=== PATIENT | female | born 1995 | race Caucasian/White ===

== ENCOUNTER → 2020-05-24 | Outpatient (REF) | payer OTHER ==
[2020-05-24 14:00] LABS: HEMATOCRIT 36.1 % (36.0-47.0); MEAN CORPUSCULAR HEMOGLOBIN 28.2 pg (27.0-33.0); MEAN CORPUSCULAR HGB CONC 33.2 g/dl (32.0-36.5); MEAN CORPUSCULAR VOLUME 84.9 fl (80.0-96.0); PLATELET COUNT, AUTOMATED 314 10^3/uL (150-450); RED BLOOD COUNT 4.25 10^6/uL (4.00-5.40); WHITE BLOOD COUNT 10.3 10^3/uL (4.0-10.0)
[2020-05-24 15:20] LABS: HEPATITIS C VIRUS ABY INDEX 0.1 INDEX (<0.8); HIV 1&2 SCREEN CENTAUR NEGATIVE (NEGATIVE)
[2020-05-24 15:32] LABS: CHLAMYDIA DNA AMPLIFICATION NEGATIVE (NEGATIVE); GC DNA AMPLIFICATION NEGATIVE (NEGATIVE)
== END ==
LOC: M PLALAB 11:08
PROVIDERS: ATTEND Obstetrics & Gynecology
DX: Z3A.11 11 weeks gestation of pregnancy (principal)

== ENCOUNTER → 2020-06-20 | Outpatient (REF) | payer OTHER | LOC: M PLALAB 17:31 | PROVIDERS: ATTEND Obstetrics & Gynecology | DX: Z3A.15 15 weeks gestation of pregnancy (principal); Z53.9 Procedure and treatment not carried out, unspecified reason ==

== ENCOUNTER → 2020-06-21 | Outpatient (CLI) | payer OTHER | LOC: M WHC 10:27 | PROVIDERS: ATTEND Obstetrics & Gynecology | DX: Z36.89 Encounter for other specified antenatal screening (principal); Z3A.15 15 weeks gestation of pregnancy; Z53.8 Procedure and treatment not carried out for other reasons ==

== ENCOUNTER → 2020-06-21 | Outpatient (REF) | payer OTHER | LOC: M SFHCWAGY 16:44 | PROVIDERS: ATTEND Obstetrics & Gynecology | DX: Z36.89 Encounter for other specified antenatal screening (principal); Z3A.35 35 weeks gestation of pregnancy ==

== ENCOUNTER → 2020-07-12 | Outpatient (CLI) | payer OTHER ==
--- NOTE | 2020-07-12 12:05 | REP ---
INDICATION: ANATOMY. COMPARISON: None. TECHNIQUE: Multiple sonographic images of the gravid uterus. FINDINGS: There is a single intrauterine gestation in a breech presentation. The placenta is anterior with grade 0 maturity. There is no previa. There is a three-vessel cord that inserts centrally onto the placenta. The cord insertion is unremarkable. The cervix measures 3.2 cm. heart rate is 128 beats per minute. Amniotic fluid volume subjectively is normal. The composite ultrasound gestational age by the ultrasound today is 17 weeks 0 days with an LISA of 12/20/2020. The LMP is unknown. weight is 182 g. This corresponds to 0 lb 6 oz. Next this is less than the 1st percentile for 18 weeks 1 day. The following anatomic structures are identified and are unremarkable: Cranium, cavum septum pellucidum, falx, intracranial ventricles, choroid plexus, cerebellum, cisterna magna, nuchal fold, facial profile, cardiac rhythm, four-chamber heart, cardiac right and left ventricular outflow tracts, stomach, abdominal wall, bladder, right and left upper extremities, right left lower extremities and 3 vessel cord. The following structures are suboptimally demonstrated today because of position: upper lip, diaphragm, right and left kidneys and spine. A follow-up study dedicated to these structures might be considered. IMPRESSION: dating and anatomy as described above. <Electronically signed by Alessio Chawla > 07/12/20 1207
== END ==
LOC: M WHC 10:02
PROVIDERS: ATTEND Obstetrics & Gynecology
DX: Z36.89 Encounter for other specified antenatal screening (principal); O32.1XX0 Maternal care for breech presentation, not applicable or unspecified; Z3A.17 17 weeks gestation of pregnancy

== ENCOUNTER → 2020-07-18 | Outpatient (CLI) | payer OTHER | LOC: M WHC 12:47 | PROVIDERS: ATTEND Obstetrics & Gynecology | DX: Z3A.19 19 weeks gestation of pregnancy (principal); Z53.9 Procedure and treatment not carried out, unspecified reason ==

== ENCOUNTER → 2020-07-22 | Outpatient (REF) | payer OTHER | LOC: M SFHCWAGY 13:20 | PROVIDERS: ATTEND Obstetrics & Gynecology | DX: Z36.89 Encounter for other specified antenatal screening (principal); Z3A.19 19 weeks gestation of pregnancy ==

== ENCOUNTER → 2020-08-08 | Outpatient (CLI) | payer OTHER ==
--- NOTE | 2020-08-08 18:16 | REP ---
INDICATION: F/U ANATOMY. COMPARISON: Comparison study July 12, 2020.. TECHNIQUE: Transabdominal obstetric sonography. FINDINGS: Scanning through the gravid uterus demonstrates a viable single intrauterine gestation in cephalic lie. motion is observed and heart rate is recorded at 136 beats per minute. A anterior placenta is seen, grade 1, without evidence of placenta previa. Closed cervical length is measured at 3.0 cm transabdominally. No extrauterine abnormality is observed. Amniotic fluid is subjectively normal. On today's exam, nose and lips, diaphragm, kidneys, and spine are visualized and felt to be unremarkable. In conjunction with the prior study, anatomic survey is felt to be complete.. Biometry chart: BPD 4.7 cm, 20 weeks 2 days Head circumference 18.3 cm, 20 weeks 5 days Abdominal circumference 15.7 cm, 20 weeks 6 days Femur length 3.6 cm, 21 weeks 3 days Humeral length 3.4 cm, 21 weeks 5 days HC AC ratio normal 1.17 Cephalic index normal 0.70 Estimated weight 395 g, 0 lb 13 oz, less than 3rd percentile for 22 weeks 0 days IMPRESSION: Viable single intrauterine gestation at 21 weeks 0 days by today's composite sonographic criteria. LISA by today's sonography 12/19/2020. No complication identified. Expected gestational age estimate from known LISA provided is 22 weeks 0 days LISA by prior sonography December 12, 2020. EFW less than 3rd percentile. <Electronically signed by Wesly Griffith > 08/08/20 [id number]
== END ==
LOC: M WHC 09:47
PROVIDERS: ATTEND Obstetrics & Gynecology
DX: Z36.2 Encounter for other antenatal screening follow-up (principal); Z3A.21 21 weeks gestation of pregnancy

== ENCOUNTER → 2020-08-12 | Outpatient (CLI) | payer OTHER | LOC: M WHC 16:07 | PROVIDERS: ATTEND Obstetrics & Gynecology | DX: Z36.89 Encounter for other specified antenatal screening (principal); Z3A.22 22 weeks gestation of pregnancy; Z53.9 Procedure and treatment not carried out, unspecified reason ==

== ENCOUNTER → 2020-08-27 | Outpatient (CLI) | payer OTHER ==
--- NOTE | 2020-08-27 09:31 | REP ---
INDICATION: F/U ANATOMY,GROWTH,BPP COMPARISON: 08/08/2020 TECHNIQUE: Transabdominal obstetrical ultrasound with color Doppler evaluation. FINDINGS: Examination demonstrates a single live intrauterine in cephalic presentation. motion is identified by technologist. Placenta is noted anterior and grade 1 without evidence for placenta previa or abruption. Amniotic fluid volume is low normal. Cervix measures 3.6 cm in length and appears closed.. Gestational age by LMP 24 weeks 5 days with LISA 12/12/2020. Gestational age by current measurements 24 weeks 1 day with LISA 12/16/2020. FHR equals 152 beats per minute. Estimated weight 666 grams (19thpercentile). SUZANNE: 9.5 cm (9.7-22.0) Biophysical profile score: 8/8 Umbilical artery SD ratio: 2.59-2.80 (2.35-4.88) IMPRESSION: 1. Single live intrauterine in cephalic presentation demonstrating appropriate estimated weight/growth. Biophysical profile score normal. 2. Amniotic fluid index is low normal. <Electronically signed by Eros Khan > 08/27/20 0832
== END ==
LOC: M WHC 07:55
PROVIDERS: ATTEND Obstetrics & Gynecology
DX: Z36.2 Encounter for other antenatal screening follow-up (principal); Z3A.24 24 weeks gestation of pregnancy

== ENCOUNTER → 2020-11-08 | Outpatient (CLI) | payer OTHER ==
--- NOTE | 2020-11-08 12:37 | REP ---
INDICATION: IUGR, BPP. COMPARISON: 08/27/2020. TECHNIQUE: Real-time sonographic evaluation of the gravid uterus performed. FINDINGS: Estimated gestational age is35 weeks 1 day, EDC 12/12/2020. Today's measurements indicate appropriate growth. Presentation: Cephalic Placenta anterior, grade 1, without evidence of placenta previa. heart rate is recorded at 124 beats per minute. Amniotic fluid is subjectively normal. SUZANNE 18.1, normal range 7.9-24.9. Biophysical profile score 8/8. Closed cervical length is measured at 3.3 cm. Biometry chart: BPD: 88 mm, 35 weeks 3 days, 53rd percentile. HC: 319 mm, 35 weeks 6 days, 62nd percentile AC: 307 mm, 34 weeks 5 days, 43rd percentile Femur length: 69 mm, 35 weeks 3 days, 54th percentile HC to AC ratio: 1.04, normal range 0.93-1.12. Estimated weight: 2588g, 46th percentile. SD ratio umbilical artery 2.04, normal 1.67-3.58. RI 0.51, normal 0.46-0.72. IMPRESSION: Viable single intrauterine gestation as above. <Electronically signed by Alessio Sanz > 11/08/20 [id number]
== END ==
LOC: M WHC 11:22
PROVIDERS: ATTEND Obstetrics & Gynecology
DX: Z36.4 Encounter for antenatal screening for fetal growth retardation (principal); Z3A.35 35 weeks gestation of pregnancy

== ENCOUNTER → 2020-11-18 | Outpatient (REF) | payer OTHER | LOC: M SFHCWAGY 13:17 | PROVIDERS: ATTEND Obstetrics & Gynecology | DX: Z36.89 Encounter for other specified antenatal screening (principal); Z3A.36 36 weeks gestation of pregnancy ==

== ENCOUNTER → 2020-11-21 | Outpatient (CLI) | payer OTHER ==
[2020-11-21 13:34] LABS: HEMATOCRIT 31.9 % (36.0-47.0); HEMOGLOBIN 10.6 g/dl (12.0-15.5); MEAN CORPUSCULAR HEMOGLOBIN 28.8 pg (27.0-33.0); MEAN CORPUSCULAR HGB CONC 33.2 g/dl (32.0-36.5); MEAN CORPUSCULAR VOLUME 86.7 fl (80.0-96.0); PLATELET COUNT, AUTOMATED 251 10^3/uL (150-450); RED BLOOD COUNT 3.68 10^6/uL (4.00-5.40); WHITE BLOOD COUNT 11.4 10^3/uL (4.0-10.0)
== END ==
LOC: M PLALAB 11:12
PROVIDERS: ATTEND Obstetrics & Gynecology
DX: Z36.4 Encounter for antenatal screening for fetal growth retardation (principal)

== ENCOUNTER 2020-12-08 14:01 | Inpatient (IN) | payer MEDICAID, OTHER, SELFPAY ==
[~2020-12-08] VITALS: Ht 162.6 cm; Wt 92.3 kg
[2020-12-08 14:32] VITALS: BP 116/62
[2020-12-08] MEDS ORDERED: ACET-907 PO (14:56)
[2020-12-08] MEDS ORDERED: IRON27TA2 PO (14:57)
[2020-12-08] MEDS ORDERED: TUMS500C PO (14:57)
[2020-12-08 15:02] LABS: HEMATOCRIT 33.4 % (36.0-47.0); MEAN CORPUSCULAR HEMOGLOBIN 28.1 pg (27.0-33.0); MEAN CORPUSCULAR HGB CONC 32.9 g/dl (32.0-36.5); MEAN CORPUSCULAR VOLUME 85.4 fl (80.0-96.0); PLATELET COUNT, AUTOMATED 266 10^3/uL (150-450); RED BLOOD COUNT 3.91 10^6/uL (4.00-5.40); WHITE BLOOD COUNT 12.8 10^3/uL (4.0-10.0)
[2020-12-08] MEDS ORDERED: LACTATED RINGER'S 1000 ML IV STA (15:24)
[2020-12-08] MEDS ORDERED: TRANEXAMIC ACID INJection 1,000 MG in NS 100 ML IV PRN (15:25)
[2020-12-08] MEDS ORDERED: CARBOPROST TROMETHAMINE 250 MCG/ML AMP IM PRN (15:25)
[2020-12-08] MEDS ORDERED: METHYLERGONOVINE MALEATE 0.2 MG/ML VIAL (J2210) IM PRN (15:25)
--- NOTE | 2020-12-08 15:40 | HPEPDOC ---
Obstetrical History & Physical General Date of Admission Dec 08, 2020 at 14:01 History of Present Illness 24-year-old at 39+3 weeks gestation. Presents for an induction of labor. Indication for induction: elective, non-medically indicated. She denies vaginal bleeding, loss of fluid or painful, frequent uterine contractions. She reports regular movement. She denies headache, visual changes, right upper quadrant pain, shortness of breath or chest pain. course: uncomplicated; mild anemia PMH: Depression/anxiety SH: tonsillectomy, I&D abscess of upper lip Meds: vitamin All: NKDA ROLL WEIGHER: No STI or dysplasia OB: G1 Sochx: No tobacco, alcohol or drug use FamHx: HTN, psych, PGM: breast CA labs: Blood type A+, antibody screen negative, HepBsAg neg, HIV neg, rubella immune, Hep C antibody negative, RPR nonreactive, CT/GC neg, urine culture negative, 1 hour glucose challenge test 106, GBS negative Imaging: no placental abnormalities. No anomalies. Past Medical History Allergies Coded Allergies: SEASONAL ALLERGIES (Verified Allergy, Mild, 12/08/20) Medications Miscellaneous Medications Acetaminophen (Tylenol) 325 Mg Tablet, 1,000 MG PO Calcium Carbonate (Tums) 200 Mg Tab.chew, 500 MG PO Ferrous Gluconate (Iron) 236 Mg Tablet, 65 MG PO Physical Examination Physical Examination GENERAL: Alert and oriented times three. ABDOMEN: Gravid and non-tender to touch. FETUS: Is vertex (VTX) by sterile vaginal examination (SVE), fetus is vertex (VTX) by [place]. HEART RATE: Regular rate and rhythm. LUNGS: Clear to auscultation (CTA). EXTREMITIES: No edema. No clonus. SVE: 1cm, 25%, -3, cephalic, intact, no bloody show. EFM: Cat I [place]: irreg/rare contractions. Laboratory Data 24H LABS Laboratory Tests 2 12/08/20 14:07: Serology Scanned Report Hepatitis B Testing 12/08/20 14:29: Nucleated Red Blood Cells % (auto) 0.0 CBC/BMP Laboratory Tests 12/08/20 14:29 Assessment/Plan Assessment 24yo at 39+3 weeks EGA. Reassuring maternal and status. Non- medically indicated, elective induction of labor. Plan Admit and orient. Supervisor Cook Room and consent. Labs and intravenous (IV) per unit protocol. Counseled on r/b/a/i of elective IOL; pt understands she has no medical indication for IOL. Anticipate . C-S as appropriate. DARREN HIDALGO DO Dec 08, 2020 15:40
[2020-12-08 15:50] VITALS: BP 107/58
[2020-12-08] MEDS: miSOPROStol 50MCG 1/2 TABLET SL SCH ×2 (15:50→19:45)
[2020-12-08 17:16] VITALS: BP 115/67
[2020-12-08 22:35] VITALS: BP 108/62
[2020-12-08] MEDS ORDERED: OXYTOCIN DRIP 30 UNITS in IV 1 EA IV SCH (23:05)
--- NOTE | 2020-12-08 23:05 | IPNPDOC ---
Obstetrical Progress Note Date of Service Dec 08, 2020 Subjective Patient feeling mildly uncomfortable with contractions. No LOF, VB. Objective Vital Signs Date Time Temp Pulse Resp B/P (MAP) Pulse Ox O2 Delivery O2 Flow Rate FiO2 12/08/20 19:21 97.9 17 Room Air 12/08/20 17:16 93 115/67 (83) Assessment Heart Rate Tracing: Category I Tocometer Contractions: Yes Frequency: every 1-3 min. Strength: palpated as mild Sterile Vaginal Examination Dilation: 1cm Effacement (%): 50% Station: -3 Cervical Consistency: Soft Postion/Presentation: Cephalic presentation Assessment and Plan Status: Reassuring Additional Comments Cook balloon inserted (60ml/40ml) Start Pitocin low dose protocol. Reassuring maternal and status. DARREN HIDALGO DO Dec 08, 2020 23:04
[2020-12-08 23:21] VITALS: BP 109/75
[2020-12-09] VITALS (47 sets, daily range): BP systolic 90–132; BP diastolic 48–78
[2020-12-09] MEDS ORDERED: PROMETHAZINE INJ 25 MG/ML VIAL (J2550) IV ONE (00:40)
[2020-12-09] MEDS ORDERED: BUTORPHANOL 2 MG/ML INJ (J0595) IV ONE (00:40)
[2020-12-09] MEDS: LR 1,000 ML IV SCH ×4 (01:39→15:11)
--- NOTE | 2020-12-09 11:40 | IPNPDOC ---
Obstetrical Progress Note Date of Service Dec 09, 2020 Subjective Reports feeling cramping. Objective Vital Signs Date Time Temp Pulse Resp B/P (MAP) Pulse Ox O2 Delivery O2 Flow Rate FiO2 12/09/20 11:06 100 20 110/62 (78) Room Air 12/09/20 08:07 99.1 Assessment Heart Rate (FHR): 140 Variability: Moderate Accelerations: Positive Decelerations: None Heart Rate Tracing: Category I Tocometer Contractions: Yes Frequency: regular Sterile Vaginal Examination Dilation: 5 cm Effacement (%): other (75%) Station: -1 Cervical Consistency: Soft Cervical Position: Anterior Postion/Presentation: Cephalic presentation Assessment and Plan Age: 24 : 1 Term: 0 Pre-term: 0 Abortions: 0 Livin EGA at Admission: 39.4 Status: Reassuring Group B Streptococcus: Negative Anticipate: Vaginal Delivery Additional Comments IV Pitocin is at 12 mu/min. AROM after consent from patient to a scant amount of clear fluid with moderate amount of bloody show. IUPC inserted due to difficulty monitoring contractions. TONY ASHLEY CNM Dec 09, 2020 11:40
[2020-12-09] MEDS ORDERED: FENTANYL 2MCG/ML ROPIVACAINE 0.2% IN 0.9% NACL 100ML IVBAG As Ordered ONE (13:35)
[2020-12-09] MEDS ORDERED: EPIDURAL/PCA KEYS XX PRN (14:05)
[2020-12-09] MEDS ORDERED: REFRIGERATOR IV KEYS XX PRN (14:05)
[2020-12-09] MEDS ORDERED: ePHEDrine SULFATE 25 MG/5 ML(5MG/ML) SYRINGE IV PRN (14:05)
[2020-12-09] MEDS ORDERED: EPIDURAL COMMENT XX SCH (14:05)
[2020-12-09] MEDS ORDERED: ONDANSETRON 4MG/2ML VIAL IV PRN (14:05)
[2020-12-09] MEDS ORDERED: LACTATED RINGER'S 1000 ML IV PRN (14:05)
[2020-12-09] MEDS ORDERED: NALOXONE INJ 0.4MG/1ML VIAL (J2310 PER 1MG) IV PRN (14:05)
[2020-12-09] MEDS ORDERED: diphenhydrAMINE 50MG/ML VIAL (J1200) IV PRN (14:05)
[2020-12-09] MEDS ORDERED: FENTANYL/ROPIVACAINE/NACL BAG 100 ML EPIDURAL SCH (14:05)
[2020-12-09] MEDS ORDERED: ACETAMINOPHEN 500 MG TAB PO ONE (20:20)
[2020-12-09] MEDS ORDERED: AMPICILLIN SOD/SULBACTAM SOD 3 GM in D5W MINI-BAG PLUS 100 ML IV ONE (20:20)
[2020-12-09] MEDS ORDERED: OXYTOCIN DRIP 30 UNITS in IV 1 EA IV SCH (21:35)
--- NOTE | 2020-12-09 22:21 | DNPDOC ---
[facility] Delivery Note Delivery Note DATE OF DELIVERY: 12/09/20 at 2101 PREDELIVERY DIAGNOSIS: 39-4/7 weeks' gestation and induction of labor. POST DELIVERY DIAGNOSIS: Delivered. PROCEDURE: Spontaneous vaginal delivery. CHANNEL OPENER: Tony Dunham CNM, PAVITHRA ANESTHESIA: epidural. ESTIMATED BLOOD LOSS: 400 mL. FINDINGS: 7 pounds 2 ounces; 3230 grams; female infant, Score 9/9, chorioamnionitis (maternal fever). DELIVERY SUMMARY: Mely is a 24-year-old female who is now a who presented to L&D for an elective induction of labor. She received Cytotec, a durand bulb and IV Pitocin for induction. She progressed to fully dilated at 2022. At that time she was found to have a fever of 101 degrees. FHR baseline did increase from 140 to 160. Diagnosed with chorioamnionitis and PO Tylenol was given along with Unasyn 3 grams via IV started. Reviewed policy with patient and family that baby will go to NICU for observation and IV antibiotics for the next 48 hours until negative blood cultures. She pushed to a living female in the LYRIC position with restitution to LOT. The anterior shoulder delivered with ease and the corpus immediately followed. The baby was placed [id number] active and crying. The cord was clamped after 2 minutes and cut by the FOB. A 3-vessel cord was noted. The vagina, cervix, and perineum was inspected and found to have a 2nd degree perineal laceration that was repaired with a 3.0 Vicryl. A left labial laceration was noted and not repaired due to good hemostasis. The placenta delivered at 2127. Uterine hemostasis was achieved via rapid infusion of IV Pitocin, fundal massage and IM Methergine. The IM Methergine was used due to continuous trickling with lower uterine segment atony. Straight catheter was done due to continuous expression of urine with fundal massage. 75 cc drained with catheter. They plan on naming their daughter Lissett. She plans to breast and formula feed. Both mom and baby are in stable condition. All counts of instruments and sponges are correct. TONY DUNHAM CNM Dec 09, 2020 22:21
[2020-12-09] MEDS ORDERED: RHOGAM 300 MCG (1500 IU) INJ (J2790) IM SCH (22:30)
[2020-12-09] MEDS ORDERED: DOCUSATE SODIUM 100MG CAPSULE PO PRN (22:30)
[2020-12-09] MEDS ORDERED: DIBUCAINE 1% OINTMENT 30GM TOP PRN (22:30)
[2020-12-09] MEDS ORDERED: MEASLES,MUMPS,RUBELLA VACCINE INJ (MMR-II) (90707) SC SCH (22:30)
[2020-12-09] MEDS ORDERED: IBUPROFEN 600MG TAB PO PRN (22:30)
[2020-12-09] MEDS ORDERED: METHYLERGONOVINE MALEATE 0.2 MG TAB PO PRN (22:30)
[2020-12-09] MEDS ORDERED: ACETAMINOPHEN TAB 650MG DOSE (2X325MG) PO PRN (22:30)
[2020-12-09] MEDS ORDERED: ANUSOL HC CREAM 30GM TOP PRN (22:30)
[2020-12-10] MEDS: IBUPROFEN 800 MG TAB PO PRN ×2 (01:24→19:44)
[2020-12-10 02:00] VITALS: BP 136/65
[2020-12-10] MEDS: AMPICILLIN SOD/SULBACTAM SOD 3 GM in D5W MINI-BAG PLUS 100 ML IV SCH ×4 (02:49→21:11)
[2020-12-10] MEDS: ACETAMINOPHEN 500 MG TAB PO PRN ×2 (03:05→14:01)
[2020-12-10 06:00] VITALS: BP 121/58
[2020-12-10] MEDS: PRENATAL VITAMINS CHEWABLE TABLET PO SCH (08:52)
[2020-12-10] MEDS ORDERED: INFLUENZA QUADRIVALENT PF VACCINE 0.5ML SYRINGE IM ONE (09:00)
--- NOTE | 2020-12-10 10:04 | IPNPDOC ---
Text Note Date of Service The patient was seen on 12/10/20. NOTE Progress note S: no complaints O: AVSS Abd: NT, ff ext: NT A/P PPD#1 s/p with chorioamnionitis at [facility] Continue Unasyn for no more than 24 hours Routine PP care VS,Fishbone, I+O VS, Fishbone, I+O Vital Signs Date Time Temp Pulse Resp B/P (MAP) Pulse Ox O2 Delivery O2 Flow Rate FiO2 12/10/20 06:00 97.8 16 80 121/58 (79) 96 Room Air I&O- Last 24 Hours up to 6 AM 12/10/20 06:00 Intake Total 5678 ml Output Total 2550 ml Balance 3128 ml GENI EDWARDS MD Dec 10, 2020 10:03
[2020-12-10 18:00] VITALS: BP 117/71
[2020-12-10 22:00] VITALS: BP 118/70
[2020-12-11 02:00] VITALS: BP 108/56
[2020-12-11 06:00] VITALS: BP 119/56
[2020-12-11] MEDS: IBUPROFEN 800 MG TAB PO PRN (09:33)
[2020-12-11] MEDS: PRENATAL VITAMINS CHEWABLE TABLET PO SCH (09:33)
== END 2020-12-11 12:45 | disposition home or self-care (01) | DRG 560 ==
LOC: M LDI 14:01 → M OBS 12-09 23:33
PROVIDERS: ADMIT Obstetrics & Gynecology; ATTEND Advanced Practice Midwife
PROC: 3E0P7GC Introduction of Other Therapeutic Substance into Female Reproductive, Via Natural or Artificial Opening (ICD-10-PCS; 2020-12-08)
PROC: 10E0XZZ Delivery of Products of Conception, External Approach (ICD-10-PCS; principal; 2020-12-09)
PROC: 10907ZC Drainage of Amniotic Fluid, Therapeutic from Products of Conception, Via Natural or Artificial Opening (ICD-10-PCS; 2020-12-09)
PROC: 0KQM0ZZ Repair Perineum Muscle, Open Approach (ICD-10-PCS; 2020-12-09)
DX: O41.1230 Chorioamnionitis, third trimester, not applicable or unspecified (principal); Z3A.39 39 weeks gestation of pregnancy; Z37.0 Single live birth; O70.1 Second degree perineal laceration during delivery; O62.2 Other uterine inertia

== ENCOUNTER → 2021-03-05 | Outpatient (REF) | payer OTHER, MEDICAID ==
[~2021-03-05] MED LIST: ACET-907 PO; IRON27TA2 PO; TUMS500C PO
== END ==
LOC: M SFHCWAGY 12:53
PROVIDERS: ATTEND Advanced Practice Midwife
DX: Z12.4 Encounter for screening for malignant neoplasm of cervix (principal); R87.612 Low grade squamous intraepithelial lesion on cytologic smear of cervix (LGSIL)